=== PATIENT | male | born 1935 | race Caucasian/White ===

== ENCOUNTER → 2016-07-16 | Outpatient (CLI) | payer OTHER, BC ==
[~2016-07-16] MED LIST: AMLO-110 PO; ATOR10TA82 PO; DUTA0.5C PO; FLEC100T21 PO; METO50TA16 PO
[2016-07-16 09:46] LABS: HEMATOCRIT 40.3 % (42-52); MEAN CELL VOLUME 86.7 fL (80-100); MEAN CORPUSCULAR HEMOGLOBIN 29.5 pg (25-34); MEAN PLATELET VOLUME 10.1 fL (7.4-10.4); PLATELET COUNT 159 K/uL (130-400); RED BLOOD COUNT 4.65 M/uL (4.7-6.1); WHITE BLOOD COUNT 5.73 K/uL (4.8-10.8)
[2016-07-16 09:56] LABS: URINE APPEARANCE CLEAR (CLEAR); URINE BILIRUBIN NEG (NEG); URINE COLOR YELLOW; URINE NITRITE NEG (NEG); URINE PH 5.5 (4.5-7.5); URINE SPECIFIC GRAVITY 1.015 (1.000-1.030); UROBILINOGEN NEG (NEG)
[2016-07-16 10:04] LABS: MANUAL MICROSCOPIC REQUIRED? NO; REVIEW REQ? NO
[2016-07-16 10:05] LABS: URINE PROTIEN/CREAT RATIO 0.1 (0-0.2); URINE TOTAL PROTEIN 13.1 mg/dl (0-11.9)
[2016-07-16 10:50] LABS: ALT/SGPT 24 U/L (12-78); AST/SGOT 18 U/L (15-37); BLOOD UREA NITROGEN 28 mg/dl (7-18); BUN/CREATININE RATIO 17.2 (10-20); CALCIUM 8.8 mg/dl (8.5-10.1); CARBON DIOXIDE 28 mmol/L (21-32); CHLORIDE 108 mmol/L (98-107); GLUCOSE 81 mg/dl (70-99); POTASSIUM 4.1 mmol/L (3.5-5.1); SODIUM 143 mmol/L (136-145)
[2016-07-16 10:55] LABS: ALKALINE PHOSPHATASE 67 U/L (45-117); CHOLESTEROL 123 mg/dl (0-200); CHOLESTEROL/HDL RATIO 2.9; HDL CHOLESTEROL 43 mg/dl; LDL CHOLESTEROL CALCULATED 65 mg/dl; TRIGLYCERIDES 75 mg/dl (0-150); VERY LOW DENSITY LIPOPROT CALC 15 mg/dl
--- NOTE | 2016-07-22 12:31 | CODING QUERY MEDICAL NECESSITY ---
CQSUPPORTING DIAGNOSIS NEEDED A supporting diagnosis is required for the test/procedure performed on this patient in order for us to be reimbursed by the patient's insurance. Please provide a supporting diagnosis for the following test/procedure listed below next to the test name along with your signature. *If there is no additional diagnosis for this patient that would support the following test/procedure please document that below next to the test/procedure. Test(s)/Procedure(s) that require a supporting diagnosis: DOS 07/16/16 PROSTATE SPECIFIC Provider Signature: Date: Thank you Judith Blanc [employer] Once completed, please kindly fax back to [phone] For questions please call [phone]
== END ==
LOC: C.LAB1850 08:47
PROVIDERS: ATTEND Internal Medicine
DX: N43.3 Hydrocele, unspecified (principal); I10 Essential (primary) hypertension; N18.3 Chronic kidney disease, stage 3 (moderate); D64.9 Anemia, unspecified; E55.9 Vitamin D deficiency, unspecified; N40.1 Benign prostatic hyperplasia with lower urinary tract symptoms; R97.20 Elevated prostate specific antigen [PSA]

== ENCOUNTER → 2017-01-26 | Outpatient (CLI) | payer OTHER, BC ==
[~2017-01-26] MED LIST changes: -ATOR10TA82 PO; +ATOR10TA88 PO
[2017-01-26 12:27] LABS: HEMATOCRIT 43.2 % (42-52); MEAN CORPUSCULAR HEMOGLOBIN 30.1 pg (25-34); MEAN CORPUSCULAR HGB CONC 34.3 g/dl (32-36); PLATELET COUNT 158 K/uL (130-400); RED BLOOD COUNT 4.91 M/uL (4.7-6.1); WHITE BLOOD COUNT 5.59 K/uL (4.8-10.8)
[2017-01-26 12:45] LABS: URINE APPEARANCE CLEAR (CLEAR); URINE BILIRUBIN NEG (NEG); URINE COLOR YELLOW; URINE NITRITE NEG (NEG); URINE PH 5.5 (4.5-7.5); URINE SPECIFIC GRAVITY 1.018 (1.000-1.030); UROBILINOGEN NEG (NEG)
[2017-01-26 12:53] LABS: MANUAL MICROSCOPIC REQUIRED? NO; REVIEW REQ? NO
[2017-01-26 13:01] LABS: ALT/SGPT 22 U/L (12-78); AST/SGOT 20 U/L (15-37); BLOOD UREA NITROGEN 28 mg/dl (7-18); CALCIUM 8.7 mg/dl (8.5-10.1); CARBON DIOXIDE 30 mmol/L (21-32); CHLORIDE 107 mmol/L (98-107); CREATININE 1.47 mg/dl (0.60-1.40); GLUCOSE 82 mg/dl (70-99); POTASSIUM 4.2 mmol/L (3.5-5.1); SODIUM 141 mmol/L (136-145)
[2017-01-26 13:04] LABS: URINE PROTIEN/CREAT RATIO 0.2 (0-0.2); URINE TOTAL PROTEIN 31.9 mg/dl (0-11.9)
[2017-01-26 13:06] LABS: ALB/GLOB RATIO 0.9 (0.9-2); ALKALINE PHOSPHATASE 77 U/L (45-117)
== END | disposition home or self-care (01) ==
LOC: C.LAB1850 11:03
PROVIDERS: ATTEND Internal Medicine Nephrology
DX: I10 Essential (primary) hypertension (principal); N18.3 Chronic kidney disease, stage 3 (moderate); D64.9 Anemia, unspecified; E55.9 Vitamin D deficiency, unspecified; R97.20 Elevated prostate specific antigen [PSA]; N40.1 Benign prostatic hyperplasia with lower urinary tract symptoms

== ENCOUNTER → 2017-06-24 | Outpatient (CLI) | payer OTHER, BC ==
[~2017-06-24] MED LIST changes: +ATOR10TA82 PO; -ATOR10TA88 PO
[2017-06-24 12:32] LABS: HEMATOCRIT 42.5 % (42-52); HEMOGLOBIN 14.1 g/dL (14.0-18.0); MEAN CELL VOLUME 89.5 fL (80-100); MEAN CORPUSCULAR HEMOGLOBIN 29.7 pg (25-34); MEAN CORPUSCULAR HGB CONC 33.2 g/dl (32-36); MEAN PLATELET VOLUME 10.5 fL (7.4-10.4); PLATELET COUNT 146 K/uL (130-400); RED CELL DISTRIBUTION WIDTH CV 13.5 % (11.5-14.5); RED CELL DISTRIBUTION WIDTH SD 44.7 fL (36.4-46.3); WHITE BLOOD COUNT 5.39 K/uL (4.8-10.8)
[2017-06-24 12:59] LABS: ALBUMIN 3.7 gm/dl (3.4-5.0); ALT/SGPT 24 U/L (12-78); AST/SGOT 23 U/L (15-37); BLOOD UREA NITROGEN 24 mg/dl (7-18); CARBON DIOXIDE 29 mmol/L (21-32); CREATININE 1.56 mg/dl (0.60-1.40); GLUCOSE 81 mg/dl (70-99); POTASSIUM 4.1 mmol/L (3.5-5.1); SODIUM 140 mmol/L (136-145)
[2017-06-24 13:01] LABS: ALKALINE PHOSPHATASE 65 U/L (45-117); TOTAL PROTEIN 7.4 gm/dl (6.4-8.2)
== END | disposition home or self-care (01) ==
LOC: C.LAB1850 10:01
PROVIDERS: ATTEND Internal Medicine Nephrology
DX: N40.1 Benign prostatic hyperplasia with lower urinary tract symptoms (principal); I10 Essential (primary) hypertension; N18.3 Chronic kidney disease, stage 3 (moderate); H93.19 Tinnitus, unspecified ear; D64.9 Anemia, unspecified; E55.9 Vitamin D deficiency, unspecified

== ENCOUNTER → 2017-07-06 | Outpatient (CLI) | payer OTHER, BC ==
--- NOTE | 2017-07-06 14:06 | DIAGNOSTIC IMAGING REPORT ---
SINGLE VIEW PELVIS CLINICAL HISTORY: Pelvic pain. FINDINGS: 2 AP pelvic radiographs are compared to study dated 03/24/2015. The skeletal structures are osteopenic. No fracture is seen involving the hips or bony pelvis. Mild arthritic change and joint space narrowing is seen in the hips. Minimal sclerotic change is noted the pubic symphysis. Small enthesophytes arise from the greater trochanters of the proximal femora and the anterior superior iliac spines. The overlying soft tissues are within normal limits. Pelvic phleboliths are observed. No bowel obstruction is identified. IMPRESSION: No acute bony abnormality is seen involving the hips or pelvis. Electronically signed by: Dk Murphy M.D. 07/06/2017 2:05 PM Dictated Date/Time: 07/06/2017 2:03 PM
--- NOTE | 2017-07-06 14:24 | DIAGNOSTIC IMAGING REPORT ---
L-SPINE MIN 4 VIEWS ROUTINE CLINICAL HISTORY: 81 years-old Male presenting with R10.2 Pelvic pain. TECHNIQUE: Frontal, bilateral oblique, lateral, and coned in lateral views of the lumbar spine were obtained. COMPARISON: None. FINDINGS: No significant scoliosis. Normal lumbar lordosis. Vertebral bodies maintain normal height and alignment. Intervertebral disc heights preserved. Anterior osteophytosis noted at several levels. No gross evidence of a compression deformity or subluxation. No osseous neural foraminal narrowing is radiographically apparent. No gross evidence of a destructive osseous lesion or abnormal sclerosis to suggest osseous metastatic disease. No pars defect. Cholecystectomy clips noted. Splenic arterial calcification. Multiple pelvic phleboliths. An additional calcific body projects over the pelvis, indeterminate. IMPRESSION: 1. Indeterminate calcific body projects over the pelvis. If there is clinical concern, CT should be obtained. 2. No gross evidence of osseous metastatic disease, acute osseous injury, or advanced degenerative change. If there is clinical concern for osseous metastatic disease, nuclear medicine bone scan should be obtained given the limited sensitivity of radiograph. Electronically signed by: Rufino Espinoza M.D. 07/06/2017 2:23 PM Dictated Date/Time: 07/06/2017 2:20 PM
== END | disposition home or self-care (01) ==
LOC: C.RAD1850 13:34
PROVIDERS: ATTEND Internal Medicine
DX: R10.2 Pelvic and perineal pain (principal)

== ENCOUNTER → 2017-08-04 | Outpatient (CLI) | payer OTHER, BC | END | disposition home or self-care (01) | LOC: C.LABSPEC 16:58 | PROVIDERS: ATTEND Urology | DX: N21.0 Calculus in bladder (principal) ==

== ENCOUNTER 2020-04-01 10:08 | Observation (INO) ==
--- NOTE | 2020-04-01 10:46 | Emergency Department Note ---
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 He notes he has a history of atrial fib and had an ablation performed back in . He is currently on Coumadin. He notes that over the past 2 weeks has been feeling his heart going in and out of A. fib and has been more persistent over the past 10 days. Admits to some chest pain which start and has been coming and going since then. It is a 5 out of 10 he describes it as dull. Has been more constant today. He notes it is worse when he is up and walking around. He had a stress test in the past year which showed some small disease per him but nothing acute. Denies any dysuria urgency or frequency. No other exacerbating or remitting factors. ROS: See above HPI for pertinent positives & negatives. A total of 10 systems reviewed and were otherwise negative. PAST MEDICAL HISTORY:See Below PAST SURGICAL HISTORY:See Below FAMILY HISTORY:See Below SOCIAL HISTORY:See Below HOME MEDICATIONS:See Below ALLERGIES:See Below VITALS:See Below PHYSICAL EXAMINATION: GENERAL: Sitting up in bed, alert, well appearing, well nourished, no distress, non-toxic EYE EXAM: normal conjunctiva. OROPHARYNX: Moist mucous membranes NECK: supple, no nuchal rigidity, no adenopathy, non-tender LUNGS: Clear to auscultation. Normal chest wall mechanics HEART: Tachycardic and irregular regular, S1 normal and S2 normal ABDOMEN: abdomen soft, non-tender, normo-active bowel sounds, no masses, no rebound or guarding. BACK: Back is symmetrical on inspection and there is no deformity, no midline tenderness, no CVA tenderness. SKIN: no rashes and no bruising UPPER EXTREMITIES: upper extremities are grossly normal. LOWER EXTREMITIES: No pitting edema. Calves are equal bilateral NEURO EXAM: Normal sensorium, cranial nerves II-XII grossly intact, normal speech, no gross weakness of arms, no gross weakness of legs. MEDICAL DECISION MAKING: Patient is a 4-year-old gentleman that presents the ER following feeling his heart race off and on for the past 2 weeks. Is having chest pain as well. He is on Coumadin. IV was established blood work was obtained. He was found to be in a flutter with a variable block in the low 100s. Labs show no significant leukocytosis or anemia. INR was subtherapeutic at 1.3. BMP with a creatinine of 1.8 up from baseline of 1.6-1.7. LFTs were unremarkable. Troponin was elevated 0.073. Discussed with Dr. Salmon from cardiology. Initial plan was to cardiovert but being subtherapeutic on the INR will have to hold. Discussed with hospitalist for admission. They recommended heparin drip. Patient was placed on heparin drip and given a small bolus. Heart rate remained from the 80s to the low 110. Was given a dose of flecainide per Dr. Yang. Updated bedside admit to the hospital for further work-up. Triage Nursing notes reviewed. Prior medical records reviewed Vital Signs: reviewed and remarkable for tachycardia Differential diagnosis: Differential diagnoses includes but is not limited to acute coronary syndrome, myocardial infarction, pericarditis, pulmonary embolus, aortic dissection, pneumonia, pneumothorax, musculoskeletal, shingles, esophageal. ER treatment provided: See below Diagnostics interpreted by me: ECG: Atrial flutter with a variable block rate of 94 Poor baseline Normal axis QTC 487 Cardiac Monitoring: An order was placed for continuous cardiac monitoring. The monitor shows a rate of 110 with atrial flutter with a variable block rhythm. Laboratory studies: As stated above and show below. Imaging studies: Portable AP upright 1 view the chest shows no focal infiltrate or pneumothorax Consultation(s): Discussed with Dr. Yang from [facility] cardiology who agreed with flecainide admission and heparin. Discussed with Dr. Escamilla for further evaluation for the hospital service ED COURSE: Procedures: none Critical Care: I have personally spent 31 minutes of critical care time in the direct management of this patient. This includes bedside care, interpretation of diagnostic studies, and testing, discussion with consultants, patient, and family members, and other required patient management activities. This 31 minutes is in excess of all separately billable procedures. Past Med/Surg History Medical History (Updated 04/01/20 @ 13:44 by Michael Mason DO) Atrial fibrillation Status post remote ablation Atrial flutter Chronic kidney disease, stage III (moderate) Sensorineural hearing loss (SNHL) of both ears Transient ischemic attack, acute Surgical History History of cholecystectomy S/P appendectomy S/P inguinal hernia repair S/P rotator cuff repair S/P tonsillectomy and adenoidectomy Status post cardiac surgery Status post catheter ablation of atrial flutter Family History Mother Colorectal cancer Father Hypertension Heart disease Uncle Cancer Denies family history of Stroke Asthma Social History Smoking Status: Former smoker Tobacco Type: Cigarettes Hx Alcohol Use: Yes Hx Substance Use: No Preferred Language: [place] marital status: Current Living Situation: Spouse current occupational status: retired Feels Safe at Home: Yes Childhood Exposure to Second-Hand Smoke: No Seatbelt Use: always Allergies Allergies Allergy/AdvReac Type Severity Reaction Status Date / Time codeine Allergy Verified 04/01/20 12:18 ANALG/ANTIPYRET Allergy Unknown Unknown Uncoded 04/01/20 12:18 OPIATEAGONISTS Allergy Unknown Unknown Uncoded 04/01/20 12:18 Home Meds Home Medications Medication Instructions Recorded Confirmed ferrous sulfate 325 mg PO .2XWK 04/01/20 04/01/20 Previous Rx's Medication Instructions Recorded flecainide 100 mg tablet 100 mg PO Q12H #200 tab 03/17/19 atorvastatin 10 mg tablet 10 mg PO DAILY #90 tab 08/17/19 warfarin 2.5 mg tablet 2.5 mg PO .COMPLEX #125 tab 12/26/19 finasteride 5 mg tablet 5 mg PO DAILY #90 tab 02/19/20 metoprolol tartrate 25 mg tablet 12.5 mg PO BID #90 tab 03/04/20 Results & Data (ED) Vital Signs Vital Signs - 24 hr 04/01/20 10:16 04/01/20 10:32 04/01/20 10:36 Temperature 36.2 C L Temperature Source Temporal Artery Scan Pulse Rate 115 H 98 H 105 H Pulse Rate [Apical] Pulse Rate from SpO2 Sensor 99 H Pulse Rhythm Respiratory Rate 20 18 20 Respiratory Effort / Characteristics Respiratory Depth Respiratory Pattern Blood Pressure 114/53 L 134/77 Blood Pressure [Right Arm] Blood Pressure Mean 73 86 Blood Pressure Mean [Right Arm] Pulse Oximetry 99 99 Oxygen Delivery Method Room Air Sepsis Recent Fever Within 48 Hours No Sepsis New/Unexplained Change in Mental Status N/A Sepsis Action Taken by Nursing No Action Required 04/01/20 10:39 04/01/20 10:43 04/01/20 11:01 Temperature Temperature Source Pulse Rate 104 H 85 Pulse Rate [Apical] 103 H Pulse Rate from SpO2 Sensor 82 Pulse Rhythm Respiratory Rate 20 20 23 Respiratory Effort / Characteristics Non-Labored Respiratory Depth Normal Respiratory Pattern Regular Blood Pressure 136/66 Blood Pressure [Right Arm] 134/77 Blood Pressure Mean 86 Blood Pressure Mean [Right Arm] 96 Pulse Oximetry 99 99 95 Oxygen Delivery Method Room Air Room Air Sepsis Recent Fever Within 48 Hours Sepsis New/Unexplained Change in Mental Status Sepsis Action Taken by Nursing 04/01/20 11:31 04/01/20 12:00 04/01/20 12:01 Temperature Temperature Source Pulse Rate 90 85 90 Pulse Rate [Apical] Pulse Rate from SpO2 Sensor 88 87 Pulse Rhythm Respiratory Rate 18 21 15 Respiratory Effort / Characteristics Respiratory Depth Respiratory Pattern Blood Pressure 127/83 137/86 Blood Pressure [Right Arm] Blood Pressure Mean 106 109 Blood Pressure Mean [Right Arm] Pulse Oximetry 99 93 Oxygen Delivery Method Sepsis Recent Fever Within 48 Hours Sepsis New/Unexplained Change in Mental Status Sepsis Action Taken by Nursing 04/01/20 12:30 04/01/20 12:32 04/01/20 12:58 Temperature Temperature Source Pulse Rate 90 79 88 Pulse Rate [Apical] Pulse Rate from SpO2 Sensor 85 Pulse Rhythm Irregular Respiratory Rate 21 17 16 Respiratory Effort / Characteristics Respiratory Depth Respiratory Pattern Blood Pressure 127/73 Blood Pressure [Right Arm] Blood Pressure Mean 79 Blood Pressure Mean [Right Arm] Pulse Oximetry 96 96 97 Oxygen Delivery Method Room Air Sepsis Recent Fever Within 48 Hours Sepsis New/Unexplained Change in Mental Status Sepsis Action Taken by Nursing 04/01/20 13:01 04/01/20 13:39 Temperature Temperature Source Pulse Rate 90 Pulse Rate [Apical] Pulse Rate from SpO2 Sensor Pulse Rhythm Respiratory Rate 18 Respiratory Effort / Characteristics Respiratory Depth Respiratory Pattern Blood Pressure 166/88 H Blood Pressure [Right Arm] Blood Pressure Mean 128 Blood Pressure Mean [Right Arm] Pulse Oximetry 97 Oxygen Delivery Method Room Air Room Air Sepsis Recent Fever Within 48 Hours Sepsis New/Unexplained Change in Mental Status Sepsis Action Taken by Nursing Laboratory Data Result diagrams: 04/01/20 10:35 04/01/20 10:35 Lab Results 04/01/20 04/01/20 04/01/20 Range/Units 10:35 10:35 10:35 WBC 6.20 (4.8-10.8) K/uL RBC 4.95 (4.7-6.1) M/uL Hgb 15.0 (14.0-18.0) g/dL Hct 44.3 (42-52) % MCV 89.5 (80-100) fL MCH 30.3 (25-34) pg MCHC 33.9 (32-36) g/dL RDW Std Deviation 45.1 (36.4-46.3) fL RDW Coeff of Gil 13.8 (11.5-14.5) % Plt Count 144 (130-400) K/uL MPV 10.7 H (7.4-10.4) fL Immature Gran % (Auto) 0.2 % Neut % (Auto) 58.7 % Lymph % (Auto) 28.2 % Phillips % (Auto) 10.5 % Eos % (Auto) 2.1 % Baso % (Auto) 0.3 % Neut # (Auto) 3.64 (1.4-6.5) K/uL Lymph # (Auto) 1.75 (1.2-3.4) K/uL Phillips # (Auto) 0.65 H (0.11-0.59) K/uL Eos # (Auto) 0.13 (0-0.5) K/uL Baso # (Auto) 0.02 (0-0.2) K/uL Immature Gran # (Auto) 0.01 (0.00-0.02) K/uL PT 13.6 H (9.0-12.0) Seconds INR 1.3 H (0.9-1.1) APTT 27.2 (21.0-31.0) Seconds PTT Ratio 1.0 Sodium 144 (136-145) mmol/L Potassium 4.1 (3.5-5.1) mmol/L Chloride 113 H (98-107) mmol/L Carbon Dioxide 24 (21-32) mmol/L Anion Gap 8.0 (3-11) BUN 27 H (7-18) mg/dl Creatinine 1.87 H (0.6-1.4) mg/dl Est Cr Clr Drug Dosing Not Reportable Est GFR ( Amer) 37.2 Est GFR (Non-Af Amer) 32.1 BUN/Creatinine Ratio 14.7 (10-20) Glucose 107 H (70-99) mg/dl Calcium 9.2 (8.5-10.1) mg/dl Total Bilirubin 0.8 (0.2-1) mg/dl AST 24 (15-37) U/L ALT 22 (12-78) U/L Alkaline Phosphatase 67 (45-117) U/L Troponin I 0.073 H* (0-0.045) ng/ml Total Protein 7.2 (6.4-8.2) gm/dl Albumin 3.5 (3.4-5.0) gm/dl Globulin 3.7 (2.5-4.0) gm/dl Albumin/Globulin Ratio 0.9 (0.9-2) Lipase 123 (73-393) U/L SARS-CoV-2 Ag (Rapid) (Negative) 04/01/20 Range/Units Unknown WBC (4.8-10.8) K/uL RBC (4.7-6.1) M/uL Hgb (14.0-18.0) g/dL Hct (42-52) % MCV (80-100) fL MCH (25-34) pg MCHC (32-36) g/dL RDW Std Deviation (36.4-46.3) fL RDW Coeff of Gil (11.5-14.5) % Plt Count (130-400) K/uL MPV (7.4-10.4) fL Immature Gran % (Auto) % Neut % (Auto) % Lymph % (Auto) % Phillips % (Auto) % Eos % (Auto) % Baso % (Auto) % Neut # (Auto) (1.4-6.5) K/uL Lymph # (Auto) (1.2-3.4) K/uL Phillips # (Auto) (0.11-0.59) K/uL Eos # (Auto) (0-0.5) K/uL Baso # (Auto) (0-0.2) K/uL Immature Gran # (Auto) (0.00-0.02) K/uL PT (9.0-12.0) Seconds INR (0.9-1.1) APTT (21.0-31.0) Seconds PTT Ratio Sodium (136-145) mmol/L Potassium (3.5-5.1) mmol/L Chloride (98-107) mmol/L Carbon Dioxide (21-32) mmol/L Anion Gap (3-11) BUN (7-18) mg/dl Creatinine (0.6-1.4) mg/dl Est Cr Clr Drug Dosing Est GFR ( Amer) Est GFR (Non-Af Amer) BUN/Creatinine Ratio (10-20) Glucose (70-99) mg/dl Calcium (8.5-10.1) mg/dl Total Bilirubin (0.2-1) mg/dl AST (15-37) U/L ALT (12-78) U/L Alkaline Phosphatase (45-117) U/L Troponin I (0-0.045) ng/ml Total Protein (6.4-8.2) gm/dl Albumin (3.4-5.0) gm/dl Globulin (2.5-4.0) gm/dl Albumin/Globulin Ratio (0.9-2) Lipase (73-393) U/L SARS-CoV-2 Ag (Rapid) Negative (Negative) Administered Medications Flecainide Acetate (Flecainide Acetate 100 Mg Tablet) 100 mg PO Q12 [facility] Stop: 05/01/20 12:44 Last Admin: 04/01/20 12:59 Dose: Not Given Documented by: [id number] Heparin Sodium/Dextrose (Heparin Sodium/Dextrose) 25,000 units in 500 mls @ 15 mls/hr IV .Q24H [facility]; Protocol Stop: 05/01/20 11:44 Last Admin: 04/01/20 12:35 Dose: 750 units/hr, 15 mls/hr Documented by: [id number] Cosigned by: [id number] Discontinued Medications Flecainide Acetate (Flecainide Acetate 100 Mg Tablet) 100 mg PO NOW [facility] Stop: 04/01/20 11:34 Last Admin: 04/01/20 12:45 Dose: 100 mg Documented by: [id number] Heparin Sodium (Porcine) (Heparin Sod (Porcine) 1000 Unit/Ml 10 Ml Vial) Confirm Administered Dose 10,000 units .ROUTE .STK-MED ONE Stop: 04/01/20 12:30 Last Admin: 04/01/20 12:34 Dose: 4,000 units Documented by: [id number] Cosigned by: [id number] Heparin Sodium/Dextrose (Heparin Iv Low Dose With Bolus) 1 ea IV NOW STA; Protocol Stop: 04/01/20 11:45 Last Admin: 04/01/20 12:35 Dose: 1 ea Documented by: [id number] Discharge Plan Visit Data Chief Complaint: Cardiac Assessment Stated Complaint: CHEST PAIN, REFUSED WHEELCHAIR ED Provider: Michael Mason Discharge Problem: Atrial fibrillation, transient, Anticoagulant long-term use, Chest pain, [place] v[place] troponin Patient Disposition: Admitted As Inpatient Discharge Instructions Interventions: ED Discharge Assessment Last Done: 04/01/20 13:39 Forms Stand Alone Forms: [facility], [facility] Emergency Department, [facility] Visit Information Prescriptions Prescriptions: No Action flecainide 100 mg tablet 100 mg PO Q12H Qty: 200 RF: 3 metoprolol tartrate 25 mg tablet 12.5 mg PO BID Qty: 90 RF: 3 atorvastatin 10 mg tablet 10 mg PO DAILY Qty: 90 RF: 3 finasteride 5 mg tablet 5 mg PO DAILY Qty: 90 RF: 3 warfarin 2.5 mg tablet 2.5 mg PO .COMPLEX Qty: 125 RF: 3 ferrous sulfate 325 mg (65 mg iron) Tablet 325 mg PO .2XWK RF: 0 Referrals Referrals: Shawn Handley MD [Primary Care Provider] - Discharge Problem: Chest pain Qualifiers: Chest pain type: unspecified Qualified Code(s): R07.9 - Chest pain, unspecified
[2020-04-01 10:52] LABS: Basophils # (auto) 0.02 K/uL (0-0.2); Basophils % (auto) 0.3 %; Eosinophils # (auto) 0.13 K/uL (0-0.5); Eosinophils % (auto) 2.1 %; Hematocrit (blood only) 44.3 % (42-52); Immature Granulocytes # (auto) 0.01 K/uL (0.00-0.02); Immature Granulocytes % (auto) 0.2 %; Lymphocytes # (auto) 1.75 K/uL (1.2-3.4); Lymphocytes % (auto) 28.2 %; Mean Corpuscular Hemoglobin 30.3 pg (25-34); Mean Corpuscular Hgb Conc 33.9 g/dL (32-36); Mean Corpuscular Volume 89.5 fL (80-100); Mean Platelet Volume 10.7 fL (7.4-10.4); Monocytes # (auto) 0.65 K/uL (0.11-0.59); Monocytes % (auto) 10.5 %; Neutrophils # (auto) 3.64 K/uL (1.4-6.5); Neutrophils % (auto) 58.7 %; Platelet Count 144 K/uL (130-400); RDW Coefficient of Variation 13.8 % (11.5-14.5); RDW Standard Deviation 45.1 fL (36.4-46.3); Red Blood Count 4.95 M/uL (4.7-6.1)
--- NOTE | 2020-04-01 11:00 | XRay Report ---
XR chest 1V portable CLINICAL HISTORY: Atypical chest pain COMPARISON STUDY: 09/16/2012 FINDINGS: The heart is borderline enlarged. There are scattered granulomatous calcifications. There i s no lobar consolidation. There is subtle basilar interstitial thickening, likely chronic. There are no pleural effusions. There is no pneumothorax[ IMPRESSION: 1. Old granulomatous changes 2. Subtle basilar interstitial thickening, likely chronic. 3. No evidence of lobar consolidation ACT 112: Negative or not required by law. Electronically signed by: Alexander Parker M.D. 04/01/2020 10:59 AM
[2020-04-01 11:08] LABS: Alanine Aminotransferase 22 U/L (12-78); Albumin Level 3.5 gm/dl (3.4-5.0); Aspartate Aminotransferase 24 U/L (15-37); BUN Creatinine Ratio 14.7 (10-20); Blood Urea Nitrogen 27 mg/dl (7-18); Calcium 9.2 mg/dl (8.5-10.1); Carbon Dioxide 24 mmol/L (21-32); Chloride 113 mmol/L (98-107); Est GFR (African American) 37.2; Est GFR (Non-African American) 32.1; Glucose 107 mg/dl (70-99); Lipase 123 U/L (73-393); Potassium 4.1 mmol/L (3.5-5.1); Sodium 144 mmol/L (136-145)
[2020-04-01 11:10] LABS: INR 1.3 (0.9-1.1); Partial Thromboplastin Time 27.2 Seconds (21.0-31.0); Prothrombin Time 13.6 Seconds (9.0-12.0)
[2020-04-01 11:15] LABS: Albumin Globulin Ratio 0.9 (0.9-2); Alkaline Phosphatase 67 U/L (45-117); Bilirubin,Total 0.8 mg/dl (0.2-1); Globulin 3.7 gm/dl (2.5-4.0); Total Protein 7.2 gm/dl (6.4-8.2); Troponin I 0.073 ng/ml (0-0.045)
[2020-04-01] MEDS ORDERED: FLECAINIDE ACETATE 100 MG TABLET PO STA (11:33)
[2020-04-01] MEDS ORDERED: Heparin IV Low Dose WITH Bolus IV STA (11:44)
[2020-04-01] MEDS ORDERED: HEPARIN SODIUM/DEXTROSE 25,000 UNITS/500 ML BAG IV SCH (11:45)
[2020-04-01] MEDS ORDERED: NITROGLYCERIN SL 0.4 MG/TAB TAB SL PRN (12:04)
[2020-04-01] MEDS ORDERED: ACETAMINOPHEN 325 MG TAB PO PRN (12:04)
[2020-04-01] MEDS ORDERED: MAGNESIUM HYDROXIDE SUSP 30 ML UDC PO PRN (12:04)
[2020-04-01] MEDS ORDERED: ONDANSETRON INJ 2 MG/ML 2 ML VIAL IV PRN (12:04)
[2020-04-01] MEDS ORDERED: ZOLPIDEM TARTRATE 5 MG TAB PO PRN (12:04)
[2020-04-01] MEDS ORDERED: HEPARIN SOD (PORCINE) 1000 UNIT/ML 10 ML VIAL ONE (12:29)
[2020-04-01] MEDS: FLECAINIDE ACETATE 100 MG TABLET PO SCH ×2 (12:59→23:08)
--- NOTE | 2020-04-01 14:47 | XCELERA ---
[id number] [id number]
--- NOTE | 2020-04-01 15:02 | Cardiology Consultation ---
Date of Consultation April 01, 2020 Assessment & Plan (1) Chest pain: He has some symptoms of exertional chest discomfort today. This was in the setting of his atrial arrhythmias. It is possible this is related to both the arrhythmia and higher heart rates. Not currently experiencing these symptoms. He has not had the symptoms in the past. With his elevated cardiac biomarkers and symptoms we elected to observe him overnight. He may require some form of noninvasive testing provided the level of troponin elevation remains small. Will continue his warfarin and monitor his blood pressure. Currently heart rate appears to be well controlled. (2) Elevated troponin: Very mildly elevated. He is advanced in age and could have some fixed coronary disease. He had some very transient exertional chest discomfort which is not likely related to his current elevation. Did have a stress echocardiogram performed approximately 1 year ago. This did not demonstrate any significant ischemia. (3) Atrial flutter: I think his current rhythm is more in consistent with atrial fibrillation. According to his records at home I believe this started approximately 4 days ago. This is when his heart rate became more elevated. However, overall rate control appears reasonable even without use of metoprolol. With had some debate over time as to the appropriate medical regimen. He has been hesitant to use certain medications and adjust the medications on his own. We did discuss the option of cardioversion. However, his warfarin level is subtherapeutic. He was not interested in a TORSTEN or cardioversion at this time. He has very few symptoms in adequate rate control currently. I think we can defer any a cardioversion, continue his flecainide and proceed with his planned to consult his electrop hysiologist regarding a repeat ablation. History of Present Illness Reason for Consultation: Palpitations, chest pain Requesting Physician: Marlon Attending Physician: Damion Escamilla History of Present Illness The patient is an 84-year-old gentleman with a longstanding history of atrial arrhythmias including atrial fibrillation and atrial flutter. He had previously undergone pulmonary vein isolation. He has been maintained on flecainide for some time. He has been feeling more tired recently. He has noticed the development of his typical symptoms of atrial flutter. He also keeps a record of his heart rate and blood pressures. He has been experimenting with his medications recently and actually reduced his dose of flecainide based on some concerns about his age in the use of this medication. He also recently stopped taking his metoprolol over concerns of low blood pressure. Based on a persistence of fatigue the patient elected to proceed to the emergency room. He noted walking across the parking lot to the emergency room he did develop some chest discomfort. This seems to have resolved currently. He also reports occasional fleeting episodes of chest discomfort. He reports dizziness on occasion. No presyncope. He generally does not have breathing difficulty. He has otherwise felt well recently Allergies Allergy/AdvReac Type Severity Reaction Status Date / Time codeine Allergy Verified 04/01/20 12:18 ANALG/ANTIPYRET Allergy Unknown Unknown Uncoded 04/01/20 12:18 OPIATEAGONISTS Allergy Unknown Unknown Uncoded 04/01/20 12:18 Home Medications Medication Instructions Recorded Confirmed Type flecainide 100 mg tablet 100 mg PO Q12H #200 tab 03/17/19 04/01/20 Rx atorvastatin 10 mg tablet 10 mg PO DAILY #90 tab 08/17/19 04/01/20 Rx warfarin 2.5 mg tablet 2.5 mg PO .COMPLEX #125 tab 12/26/19 04/01/20 Rx finasteride 5 mg tablet 5 mg PO DAILY #90 tab 02/19/20 04/01/20 Rx metoprolol tartrate 25 mg tablet 12.5 mg PO BID #90 tab 03/04/20 04/01/20 Rx ferrous sulfate 325 mg PO .2XWK 04/01/20 04/01/20 History Patient History Medical History Atrial fibrillation Status post remote ablation Atrial flutter Chronic kidney disease, stage III (moderate) Sensorineural hearing loss (SNHL) of both ears Transient ischemic attack, acute Surgical History History of cholecystectomy S/P appendectomy S/P inguinal hernia repair S/P rotator cuff repair S/P tonsillectomy and adenoidectomy Status post cardiac surgery Status post catheter ablation of atrial flutter Family History Mother Colorectal cancer Father Hypertension Heart disease Uncle Cancer Denies family history of Stroke Asthma Social History Smoking Status: Former smoker Tobacco Type: Cigarettes Second Hand Exposure: No; Do You Dip or Chew Tobacco: No; Tobacco Cessation Education Requested by Patient: No Hx Alcohol Use: No Hx Substance Use: No Preferred Language: Sammarinese Seo Executive Required: No Beliefs That Will Affect Care: None marital status: Current Living Situation: Spouse current occupational status: retired Other Information That Helps Us Care for You: No Feels Safe at Home: Yes Safety Concerns: Feels Safe At This Time Childhood Exposure to Second-Hand Smoke: No Seatbelt Use: always Assistive Devices: Hearing Aid - Bilateral Assistive Devices Comment: patient states he does not use it everyday Review of Systems Review of Systems: All systems reviewed & are unremarkable except as noted in HPI & below Physical Exam Physical Exam: The patient is alert and oriented. Mood and affect appeared normal. He answered all questions appropriately. HEENT: Pupils are equal and reactive to light and accommodation. Extraocular movements are intact. The sclerae are anicteric. Neuro: Cranial nerves intact Neck: Patient's neck is supple. He has palpable carotid pulses bilaterally without bruits on auscultation. There is no evidence of jugular venous distention. The thyroid is not enlarged. Lungs: Clear to auscultation bilaterally. He has good air movement without use of accessory muscles. No rales wheezes or rhonchi. Cardiac: Heart demonstrates an irregular rhythm. Normal S1 and S2. No murmurs on examination. Pulses: The patient has palpable radial pulses bilaterally that are equal in intensity Extremities: There was no evidence of hypoperfusion. There is no cyanosis or clubbing. There is no edema. Skin: I did not appreciate any rashes on examination today. Results & Data ([facility]) Vital Signs (Past 12 Hours) Vital Signs Temp Pulse Pulse Resp BP BP Pulse Ox 04/01/20 14:52 86 04/01/20 14:26 36.6 C 81 16 158/79 H 100 04/01/20 13:01 90 18 166/88 H 97 04/01/20 12:58 88 16 97 04/01/20 12:32 79 17 96 04/01/20 12:30 90 21 127/73 96 04/01/20 12:01 90 15 137/86 93 04/01/20 12:00 85 21 04/01/20 11:31 90 18 127/83 99 04/01/20 11:01 85 23 136/66 95 04/01/20 10:43 104 H 20 99 04/01/20 10:39 103 H 20 134/77 99 04/01/20 10:36 105 H 20 134/77 99 04/01/20 10:32 98 H 18 04/01/20 10:16 36.2 C L 115 H 20 114/53 L 99 Laboratory Results Abnormal Lab Results 04/01/20 04/01/20 04/01/20 10:35 10:35 10:35 WBC 6.20 RBC 4.95 Hgb 15.0 Hct 44.3 MCV 89.5 MCH 30.3 MCHC 33.9 RDW Std Deviation 45.1 RDW Coeff of Gil 13.8 Plt Count 144 MPV 10.7 H Immature Gran % (Auto) 0.2 Neut % (Auto) 58.7 Lymph % (Auto) 28.2 Louisa % (Auto) 10.5 Eos % (Auto) 2.1 Baso % (Auto) 0.3 Neut # (Auto) 3.64 Lymph # (Auto) 1.75 Louisa # (Auto) 0.65 H Eos # (Auto) 0.13 Baso # (Auto) 0.02 Immature Gran # (Auto) 0.01 PT 13.6 H INR 1.3 H APTT 27.2 PTT Ratio 1.0 Sodium 144 Potassium 4.1 Chloride 113 H Carbon Dioxide 24 Anion Gap 8.0 BUN 27 H Creatinine 1.87 H Est Cr Clr Drug Dosing Not Reportable Est GFR ( Amer) 37.2 Est GFR (Non-Af Amer) 32.1 BUN/Creatinine Ratio 14.7 Glucose 107 H Calcium 9.2 Total Bilirubin 0.8 AST 24 ALT 22 Alkaline Phosphatase 67 Troponin I 0.073 H* Total Protein 7.2 Albumin 3.5 Globulin 3.7 Albumin/Globulin Ratio 0.9 Lipase 123 SARS-CoV-2 Ag (Rapid) 04/01/20 Unknown WBC RBC Hgb Hct MCV MCH MCHC RDW Std Deviation RDW Coeff of Gil Plt Count MPV Immature Gran % (Auto) Neut % (Auto) Lymph % (Auto) Louisa % (Auto) Eos % (Auto) Baso % (Auto) Neut # (Auto) Lymph # (Auto) Louisa # (Auto) Eos # (Auto) Baso # (Auto) Immature Gran # (Auto) PT INR APTT PTT Ratio Sodium Potassium Chloride Carbon Dioxide Anion Gap BUN Creatinine Est Cr Clr Drug Dosing Est GFR ( Amer) Est GFR (Non-Af Amer) BUN/Creatinine Ratio Glucose Calcium Total Bilirubin AST ALT Alkaline Phosphatase Troponin I Total Protein Albumin Globulin Albumin/Globulin Ratio Lipase SARS-CoV-2 Ag (Rapid) Negative Diagnostic Findings Echocardiogram performed today revealed preserved LV systolic function. Some mild LVH. Mild to moderate mitral regurgitation. PG Care Time/CCT Total # of Minutes Spent Total Time Spent with Patient: Total time spent is greater than 50% in coord ination of care (as documented) at patient's floor/unit and/or counseling patient: Coding Diagnoses Chest pain R07.9 Chest pain type: unspecified Elevated troponin R77.8 Atrial flutter I48.92 (1) Chest pain Chest pain type: unspecified Qualified Code(s): R07.9 - Chest pain, unspecified
[2020-04-01] MEDS ORDERED: WARFARIN SOD 5 MG TAB PO SCH (16:00)
--- NOTE | 2020-04-01 18:34 | Electrocardiogram Report ---
Test Reason : Blood Pressure : / mmHG Vent. Rate : 094 BPM Atrial Rate : 375 BPM P-R Int : 000 ms QRS Dur : 118 ms QT Int : 390 ms P-R-T Axes : 000 -50 036 degrees QTc Int : 487 ms Atrial fibrillation Abnormal ECG When compared with ECG of 16-SEP-2012 00:08, Atrial fibrillation has replaced Sinus rhythm Vent. rate has increased BY 36 BPM T wave amplitude has decreased in Lateral leads Confirmed by Thom Yang ([id number]) on 04/01/2020 6:34:25 PM Referred By: REFERRED SELF Confirmed By:Nate Yang
[2020-04-01 19:02] LABS: Partial Thromboplastin Ratio 1.9
[2020-04-01] MEDS ORDERED: METOPROLOL TARTRATE 25 MG TAB PO SCH (21:00)
--- NOTE | 2020-04-01 21:47 | History & Physical Report ---
Date of Service April 01, 2020 Assessment & Plan (1) Chest pain: Patient admitted for intermittent chest pain on exertion. Will check trop serially. Trop mildly elevated likely secondary to demand ischemia. Placed on IV heparin. consulted cardio. appreciate input Obtain echocardiogram May need non invasive testing prior to discharge. (2) Elevated troponin: as stated above. (3) Atrial flutter: Placed on IV heparin continue flecainide: Level subtherapeutic. will continue on warfarin as well. (4) Chronic kidney disease, stage III (moderate): will monitor creatinine in AM. Appears mildly elevated. (5) Atrial fibrillation, transient: as stated above. Placed on flecainide, will hold metoprolol. Flecainide dose is subtherapeutic. (6) Anticoagulant long-term use: on warfarin, level is subtherapeutic at the moment. (7) Dyslipidemia: Will check FLP continue statin (8) Hypertension: BP at goal Admission and Anticipated Discharge Date Admission Date: April 01, 2020 History of Present Illness Primary Care Provider: Shawn Handley MD This is a pleasant 84 yo male with PMH of atrial flutter/atrial fib, CKD stage III. The patient is coming to the hospital with intermittent nonradiating midsternum dull chest pain which occurs at exertion and fatigue. He reports this has been ongoing for the past year. He also has noticed palpitations which have been more prominent in the past few days. He sometimes manages his medications himself and feels that the metoprolol has not been helping even after increasing the dose to 25 mg. He recently stopped making the metoprolol tartrate due to low blood pressure readings. The patient also reports cutting back his flecainide due to concerns that the dose was too high. Due to his fatigue, palpitations, and chest pain, the patient decided to come to the ER. Allergies Allergy/AdvReac Type Severity Reaction Status Date / Time codeine Allergy Verified 04/01/20 12:18 ANALG/ANTIPYRET Allergy Unknown Unknown Uncoded 04/01/20 12:18 OPIATEAGONISTS Allergy Unknown Unknown Uncoded 04/01/20 12:18 Home Medications Medication Instructions Recorded Confirmed Type flecainide 100 mg tablet 100 mg PO Q12H #200 tab 03/17/19 04/01/20 Rx atorvastatin 10 mg tablet 10 mg PO DAILY #90 tab 08/17/19 04/01/20 Rx warfarin 2.5 mg tablet 2.5 mg PO .COMPLEX #125 tab 12/26/19 04/01/20 Rx finasteride 5 mg tablet 5 mg PO DAILY #90 tab 02/19/20 04/01/20 Rx metoprolol tartrate 25 mg tablet 12.5 mg PO BID #90 tab 03/04/20 04/01/20 Rx ferrous sulfate 325 mg PO .2XWK 04/01/20 04/01/20 History Past Med/Surg History Medical History (Updated 04/01/20 @ 21:41 by Damion Escamilla) Atrial fibrillation Status post remote ablation Atrial flutter Chronic kidney disease, stage III (moderate) Sensorineural hearing loss (SNHL) of both ears Transient ischemic attack, acute Surgical History History of cholecystectomy S/P appendectomy S/P inguinal hernia repair S/P rotator cuff repair S/P tonsillectomy and adenoidectomy Status post cardiac surgery Status post catheter ablation of atrial flutter Family History Mother Colorectal cancer Father Hypertension Heart disease Uncle Cancer Denies family history of Stroke Asthma Social History Smoking Status: Former smoker Tobacco Type: Cigarettes Second Hand Exposure: No; Do You Dip or Chew Tobacco: No; Tobacco Cessation Education Requested by Patient: No Hx Alcohol Use: No Hx Substance Use: No Preferred Language: Latvian Industrial Organization Manager Required: No Beliefs That Will Affect Care: None marital status: Current Living Situation: Spouse current occupational status: retired Other Information That Helps Us Care for You: No Feels Safe at Home: Yes Safety Concerns: Feels Safe At This Time Childhood Exposure to Second-Hand Smoke: No Seatbelt Use: always Assistive Devices: Glasses and Hearing Aid - Bilateral Assistive Devices Comment: patient states he does not use it everyday Review of Systems Constitutional: no fever, no sweats, no malaise and no weight loss Eyes: no diplopia and no decreased night vision Ear, Nose, Mouth, Throat: no ear trauma and no hyperacusis Respiratory: no change in sputum Cardiovascular: + chest pain with activity, + dyspnea on exertion and + palpitations; no radiating jaw, neck or arm pain, no dyspnea at rest, no syncope and no edema Gastrointestinal: no bloating Genitourinary: no urinary frequency and no post-void dribbling Musculoskeletal: no radicular pain and no deformity Integumentary: no rash Neurologic: no falls Psychiatric: no hopelessness Endocrine: no polydipsia Hematologic / Lymphatic: no coagulopathy Allergy / Immunological: no lip swelling Physical Exam Constitutional: WD/WN, vitals as above well developed Eyes: PERRL, conjunctivae normal, anicteric sclerae ENMT: external ear and nose normal, oropharynx normal Neck: trachea midline, no thyromegaly Respiratory: normal respiratory effort, lungs clear to auscultation Cardiovascular: RRR, no murmur, no edema Gastrointestinal (Abdomen): normal bowel sounds, soft, nontender, no hepatosplenomegaly Musculoskeletal: no cyanosis or clubbing, extremities motor strength 5/5 Skin: no rashes, warm and dry Neurologic: PERRL, EOMI, accommodation nl, no face palsy, no dysarthria Psychiatric: A+Ox3, euthymic affect Lymphatic: no cervical or axillary lymphadenopathy Results & Data Results & Data ([facility]) Vital Signs (Past 12 Hours) Vital Signs Temp Pulse Pulse Resp BP BP Pulse Ox 04/01/20 20:03 37.4 C 68 18 127/57 L 96 04/01/20 15:05 36.9 C 87 19 145/66 H 98 04/01/20 14:52 86 04/01/20 14:26 36.6 C 81 16 158/79 H 100 04/01/20 13:01 90 18 166/88 H 97 04/01/20 12:58 88 16 97 04/01/20 12:32 79 17 96 04/01/20 12:30 90 21 127/73 96 04/01/20 12:01 90 15 137/86 93 04/01/20 12:00 85 21 04/01/20 11:31 90 18 127/83 99 04/01/20 11:01 85 23 136/66 95 04/01/20 10:43 104 H 20 99 04/01/20 10:39 103 H 20 134/77 99 04/01/20 10:36 105 H 20 134/77 99 04/01/20 10:32 98 H 18 04/01/20 10:16 36.2 C L 115 H 20 114/53 L 99 PG Care Time/CCT Total # of Minutes Spent Total Time Spent with Patient: Total time spent is greater than 50% in coordination of care (as documented) at patient's floor/unit and/or counseling patient: Coding Level of Care Code 39417 Initial Inpt Care Lvl 3 Diagnoses Chest pain R07.89 Chest pain type: other chest pain Elevated troponin R77.8 Atrial flutter I48.92 Chronic kidney disease, stage III (moderate) N18.3 Atrial fibrillation, transient I48.91 Anticoagulant long-term use Z79.01 Dyslipidemia E78.5 Hypertension I10 Time Spent (min) 55 (1) Chest pain Chest pain type: other chest pain Qualified Code(s): R07.89 - Other chest pain
[2020-04-02] MEDS ORDERED: ASPIRIN 81 MG ECTAB PO SCH (09:00)
[2020-04-02] MEDS ORDERED: FINASTERIDE 5 MG TAB PO SCH (09:00)
[2020-04-02] MEDS ORDERED: ATORVASTATIN 10 MG TAB PO SCH (09:00)
[2020-04-02 09:13] LABS: Basophils # (auto) 0.01 K/uL (0-0.2); Basophils % (auto) 0.2 %; Eosinophils # (auto) 0.15 K/uL (0-0.5); Eosinophils % (auto) 2.8 %; Hematocrit (blood only) 41.7 % (42-52); Hemoglobin 13.8 g/dL (14.0-18.0); Immature Granulocytes # (auto) 0.01 K/uL (0.00-0.02); Immature Granulocytes % (auto) 0.2 %; Lymphocytes # (auto) 1.76 K/uL (1.2-3.4); Lymphocytes % (auto) 33.4 %; Mean Corpuscular Hemoglobin 29.9 pg (25-34); Mean Corpuscular Hgb Conc 33.1 g/dL (32-36); Mean Corpuscular Volume 90.3 fL (80-100); Mean Platelet Volume 11.1 fL (7.4-10.4); Monocytes # (auto) 0.53 K/uL (0.11-0.59); Monocytes % (auto) 10.1 %; Neutrophils # (auto) 2.81 K/uL (1.4-6.5); Neutrophils % (auto) 53.3 %; Platelet Count 122 K/uL (130-400); RDW Coefficient of Variation 13.7 % (11.5-14.5); RDW Standard Deviation 45.1 fL (36.4-46.3); Red Blood Count 4.62 M/uL (4.7-6.1); White Blood Count 5.27 K/uL (4.8-10.8)
[2020-04-02] MEDS: FLECAINIDE ACETATE 100 MG TABLET PO SCH (09:22)
[2020-04-02 09:33] LABS: INR 1.6 (0.9-1.1); Partial Thromboplastin Ratio 1.9; Prothrombin Time 16.5 Seconds (9.0-12.0)
[2020-04-02 09:36] LABS: Partial Thromboplastin Time 53.9 Seconds (21.0-31.0)
[2020-04-02 09:52] LABS: Albumin Level 3.3 gm/dl (3.4-5.0); BUN Creatinine Ratio 16.6 (10-20); Bilirubin Direct 0.1 mg/dl (0-0.2); Calcium 8.7 mg/dl (8.5-10.1); Creatinine Clr Calc Pharmacy 32.5 ml/min; Est GFR (African American) 39.7; Est GFR (Non-African American) 34.3; Potassium 4.1 mmol/L (3.5-5.1)
[2020-04-02 09:56] LABS: Bilirubin,Total 0.5 mg/dl (0.2-1); Globulin 3.4 gm/dl (2.5-4.0); Total Protein 6.7 gm/dl (6.4-8.2)
--- NOTE | 2020-04-02 11:34 | Discharge Summary ---
Date of Service April 02, 2020 Admission HPI Per Admitting Provider The patient is a 84-year-old gentleman with a history of paroxysmal atrial fibrillation atrial flutter status post pulmonary vein isolation remotely. He presented with symptoms of persistent palpitations, worsening fatigue, mild dyspnea and exertional chest discomfort. Principal Diagnosis q Discharge Exam The patient is alert and oriented. Mood and affect appeared normal. He answered all questions appropriately. HEENT: Pupils are equal and reactive to light and accommodation. Extraocular movements are intact. The sclerae are anicteric. Neuro: Cranial nerves intact Lungs: Clear to auscultation bilaterally. He has good air movement without use of accessory muscles. No rales wheezes or rhonchi. Cardiac: Heart demonstrates an irregular rhythm. Normal S1 and S2. No murmurs on examination. Pulses: The patient has palpable radial pulses bilaterally that are equal in intensity Extremities: There was no evidence of hypoperfusion. There is no cyanosis or clubbing. There is no edema. Skin: I did not appreciate any rashes on examination today. Discharge Data Allergies Allergy/AdvReac Type Severity Reaction Status Date / Time codeine Allergy Verified 04/01/20 12:18 ANALG/ANTIPYRET Allergy Unknown Unknown Uncoded 04/01/20 12:18 OPIATEAGONISTS Allergy Unknown Unknown Uncoded 04/01/20 12:18 Consultations 04/01/20 11:44 ED Decision to Admit Stat 04/01/20 12:20 Consult Cardiology Routine Hospital Course (1) Chest pain: No recurrence. This symptom was brief in duration and exclusively exertional. He had normal exercise stress testing performed approximately 1 year ago. We will continue to monitor him for recurrent symptoms and consider outpatient stress testing. (2) Elevated troponin: Very mildly elevated. No acute rise or fall consistent with an acute coronary syndrome. Possibly demand ischemia but more likely consistent with chest atrial fibrillation and age. This is also the setting of significant renal impairment. As noted above we will consider outpatient stress testing especially if he is to continue on flecainide. (3) Atrial flutter: I think his current rhythm is more in consistent with atrial fibrillation. He did not convert on his own. We did discuss the option of cardioversion but this would require transesophageal echocardiogram as his warfarin was subtherapeutic. He was not in favor of cardioversion. He is actually feeling quite well on the day of discharge despite being in atrial fibrillation. His heart rates were controlled despite not being on any rate control medications. We discussed options moving forward. We elected to continue his current dose of flecainide in the hopes that he will spontaneously convert in the next few days. He is to follow-up in the clinic for an EKG at the end of this week. We will check his QTC, QRS duration and rhythm at that time. If he is still in atrial fibrillation and feeling well with good rate control we may elect to discontinue flecainide altogether. He will continue systemic anticoagulation I have not placed him back on metoprolol as he reports persistently low blood pressures and side effects associated with even low-dose metoprolol. Heart rates currently well controlled. However, being on some AV christy blocking agent with flecainide is recommended. I have a feeling we will likely be discontinuing flecainide in any event if he does not convert back to sinus rhythm. Total Time Total Time Spent Total Time Spent (In Minutes): 15 Total Time Includes: Examination of the Patient, Discharge Planning, Medication Reconciliation and Communication With Other Providers Discharge Plan Discharge Items Patient Disposition: Home - Self-Care Reason For Visit: A FLUTTER Discharge Diagnosis: atrial fibrillation Condition on Discharge: Good Activity: Resume your previous activity Lifting: None Bathing: No limitations Driving/Machine Use: No limitations Non-emergency contact: [employer] [place] Call non-emergency contact if: you have any medication questions and your symptoms worsen Follow-up/Referrals: Shawn Handley MD [Primary Care Provider] - Diet: Heart Healthy Addtl Attending Provider Instructions: f/u in clinic on 04/04/2020 for routine EKG Pending Studies at Discharge: No Stand-Alone Forms[facility] C[facility] Medications and DC Order Prescriptions: Continued flecainide 100 mg tablet 100 mg PO Q12H Qty: 200 RF: 3 atorvastatin 10 mg tablet 10 mg PO DAILY Qty: 90 RF: 3 finasteride 5 mg tablet 5 mg PO DAILY Qty: 90 RF: 3 warfarin 2.5 mg tablet 2.5 mg PO .COMPLEX Qty: 125 RF: 3 ferrous sulfate 325 mg (65 mg iron) Tablet 325 mg PO .2XWK RF: 0 Discontinued metoprolol tartrate 25 mg tablet 12.5 mg PO BID Qty: 90 RF: 3 Discharge Orders: Discharge Order (Routine); Ordered 04/02/20 Ordered By: Jasen Yang Admission Data Admit Date/Time: 04/01/20 12:05 Attending Provider: Anne-Marie Vázquez Admit Provider: Damion Escamilla Primary Care Provider: Shawn Handley Other Providers: Damion Escamilla ; Jasen Yang Coding Level of Care Code D/C Day Management <30 mins Diagnoses Chest pain R07.89 Chest pain type: other chest pain Elevated troponin R77.8 Atrial flutter I48.92
[2020-04-02] MEDS ORDERED: WARFARIN SOD 2.5 MG TAB PO SCH (16:00)
== END 2020-04-02 12:10 | disposition home or self-care (01) ==
LOC: ED 10:08 → SUATTDRO 12:05 → 2S 12:05 → INTOOBSV 12:05 → 2S 13:39